=== PATIENT | female | born 1965 | race African-American/Black ===

== ENCOUNTER 2018-08-15 06:48 | Day surgery (SDC) | payer OTHER ==
[~2018-08-15] VITALS: Ht 167.6 cm; Wt 78.7 kg
[2018-08-15 07:27] VITALS: Ht 167.6 cm; Wt 78.7 kg
[2018-08-15] MEDS ORDERED: NO MEDS. (07:35)
[2018-08-15 07:48] VITALS: BP 114/78; PULSE 63; RESP 15
[2018-08-15] MEDS ORDERED: FENTAnyl 50 MCG/ML VIAL ONE (09:06)
[2018-08-15] MEDS ORDERED: MIDAZOLAM 1 MG/ML 2 ML INJ ONE ×2 (09:06→09:07)
== END 2018-08-15 12:31 | disposition home or self-care (01) ==
LOC: GIL 06:48
PROVIDERS: ATTEND Internal Medicine Gastroenterology
DX: Z12.11 Encounter for screening for malignant neoplasm of colon (principal); K64.8 Other hemorrhoids
CPT/HCPCS: 45378; J2250; J3010; Z7610